=== PATIENT | female | born 2000 | race Caucasian/White ===

== ENCOUNTER 2023-06-21 15:38 | Emergency (ER) | payer OTHER ==
[~2023-06-21] VITALS: Ht 175.3 cm; Wt 82.0 kg
[2023-06-21 15:41] VITALS: O2SAT 99
[2023-06-21] MEDS ORDERED: MECLIZINE 25MG TABLET PO ONE (16:45)
[2023-06-21] MEDS: ONDANSETRON 4MG ODT PO ONE (17:05)
[2023-06-21] MEDS: MECLIZINE 12.5MG TABLET PO NR (17:05)
[2023-06-21] MEDS: SODIUM CHLORIDE 0.9% 1000ML BAG (SEPSIS BOLUS) IV ONE (17:05)
[2023-06-21 17:07] LABS: BASOPHILS % 0.4 % (0.0-2.0); HEMATOCRIT. 38.1 % (36.0-48.0); HEMOGLOBIN. 12.7 g/dL (12.0-16.0); LYMPHOCYTES % 23.1 % (20.0-50.0); MEAN CORPUSCULAR HEMOGLOBIN 27.6 pg (28.0-32.0); MEAN CORPUSCULAR HGB CONC 33.3 g/dL (31.0-37.0); MEAN CORPUSCULAR VOLUME 82.9 fL (81.0-99.0); MEAN PLATELET VOLUME 7.9 fl (7.4-10.4); MONOCYTES % 6.9 % (2.0-8.0); NEUTROPHILS % 68.6 % (40.0-76.0); PLATELET 286 x1000/uL (130-400); RED BLOOD CELL COUNT 4.59 mill/uL (4.2-5.4); RED CELL DISTRIBUTION WIDTH 13.9 % (11.6-14.6); WHITE BLOOD COUNT 9.2 x1000/uL (4.5-11.0)
[2023-06-21 17:08] LABS: CLARITY URINE CLEAR (CLEAR); COLOR URINE YELLOW (YELLOW); GLUCOSE URINE NEGATIVE (NEGATIVE); KETONES URINE NEGATIVE (NEGATIVE); LEUKOCYTE ESTERASE URINE NEGATIVE (NEGATIVE); NITRITE URINE NEGATIVE (NEGATIVE); OCCULT BLOOD URINE NEGATIVE (NEGATIVE); PROTEIN URINE NEGATIVE (NEGATIVE); UROBILINOGEN URINE 0.2 E.U./dL (0.2-1.0)
[2023-06-21 17:18] LABS: HCG SCREEN NEGATIVE
[2023-06-21 17:21] LABS: ALANINE AMINOTRANSFERASE 17 IU/L (10-49); ALBUMIN 4.5 g/dL (3.2-4.8); ASPARTATE AMINOTRANSFERASE 15 IU/L (<34); BILIRUBIN TOTAL 0.5 mg/dL (0.1-1.0); CARBON DIOXIDE 25 mEq/L (21-32); CHLORIDE 107 mEq/L (98-107); CREATININE 0.7 mg/dL (0.6-1.0); GLUCOSE 82 mg/dL (70-105); POTASSIUM 3.9 mEq/L (3.5-5.1); PROTEIN TOTAL 7.3 g/dL (6.0-8.3); SODIUM 138 mEq/L (136-145); UREA NITROGEN BLOOD 13 mg/dL (9-23)
[2023-06-21] MEDS: PREDNISONE 20MG TABLET PO ONE (19:33)
[2023-06-21] MEDS ORDERED: MECL-299 MT (20:44)
[2023-06-21] MEDS ORDERED: TOPUD MT (20:44)
[2023-06-21] MEDS ORDERED: ONDA4TAB50 MT (20:44)
[2023-06-21 22:30] VITALS: BP 93/66; PULSE 99; RESP 18
== END 2023-06-21 22:34 | disposition home or self-care (01) ==
LOC: ER 15:38
DX: H81.10 Benign paroxysmal vertigo, unspecified ear (principal); G43.909 Migraine, unspecified, not intractable, without status migrainosus; F41.9 Anxiety disorder, unspecified
CPT/HCPCS: 99285; 96360; 71045; 80053; 81003; 81025; 84703; 83880; 83605; 85025; 36415; 93005; J8597; Q0162; J7512; J7030